=== PATIENT | male | born 1985 | race African-American/Black ===

== ENCOUNTER 2018-07-17 08:37 | Emergency (ER) | payer OTHER ==
[~2018-07-17] VITALS: Ht 190.5 cm; Wt 120.2 kg
[~2018-07-17 08:37] MED LIST: CYCL10TA45 PO; CYCL10TA9 PO; NAPR-689 PO; NAPR250T34 PO; TRM50T PO
--- OUTSIDE RECORDS SUMMARY | 2018-07-17 09:19 | XMS REPORT ---
Author Author ERNIE ISRAEL [facility] eClinicalWorks Address Unknown Phone Unavailable Care Team Providers Care It Administrator Name Role Phone ERNIE ISRAEL CP Unavailable Allergies, Adverse Reactions, Alerts Substance Reaction Event Type N.K.D.A. Info Not Available Non Drug Allergy Problems Problem Type Condition ICD-9 Code Onset Dates Condition Status Problem Routine adult health maintenance V70.0 Active Problem Lumbago 724.2 Active Problem Hypertension 401.9 Active Assessment Hypertension 401.9 Active Assessment Routine adult health maintenance V70.0 Active Problem Screening for hypertension V81.1 Active Problem Elevated blood pressure reading without diagnosis of hypertension 796.2 Active Medications Medication Code System Code Instructions Start Date End Date Status Dosage Lisinopril-Hydrochlorothiazide [facility] [address]-00 20-12.5 MG Orally Once a day Jul 19, 2015 1 tablet Gabapentin [facility] [address]-05 300 mg Aug 24, 2014 take 1 capsule ( 300 mg) by oral route 3 times per day Naprosyn [facility] [address]-33 500 mg Jul 21, 2014 1 tablet by Oral route 2 times per day for back pain Flexeril NDC 0 10 mg Jul 21, 2014 1 tablet by Oral route 3 times per day PRN muscle spasm Procedures Procedure Coding System Code Date Office Visit, Est Pt., Level 4 CPT-4 44724 Jul 19, 2015 Vital Signs Date/Time: Jul 19, 2015 Temperature 97.9 F Weight 267.0 lbs Height 75 in BMI 33.37 Index Blood Pressure Diastolic 90 mmHg Blood Pressure Systolic 138 mmHg Cardiac Monitoring Heart Rate 96 bpm Results No Known Results Summary Purpose eClinicalWorks Submission
--- OUTSIDE RECORDS SUMMARY | 2018-07-17 09:19 | XMS REPORT ---
Author JAMESON Theodore Organization eClinicalWorks Address Unknown Phone Unavailable Care Team Providers Care Power Saw Operator Name Role Phone JAMESON MANDEL CP Unavailable Allergies No Known Allergies Problems Problem Type Condition ICD-9 Code Onset Dates Condition Status Problem Screening for hypertension V81.1 Active Problem Elevated blood pressure reading without diagnosis of hypertension 796.2 Active Problem Lumbago 724.2 Active Medications Medication Code System Code Instructions Start Date End Date Status Dosage Hydrochlorothiazide [facility] [address]-04 12.5 MG Orally Once a day 1 capsule Lisinopril [facility] [address]-43 20 MG Orally Once a day 1 tablet Results No Known Results Summary Purpose eClinicalWorks Submission
--- OUTSIDE RECORDS SUMMARY | 2018-07-17 09:19 | XMS REPORT ---
Author JAMESON Theodore Organization eClinicalWorks Address Unknown Phone Unavailable Care Team Providers Care Plant Science Professor Name Role Phone JAMESON MANDEL CP Unavailable Allergies No Known Allergies Problems Problem Type Condition ICD-9 Code Onset Dates Condition Status Problem Screening for hypertension V81.1 Active Problem Elevated blood pressure reading without diagnosis of hypertension 796.2 Active Problem Lumbago 724.2 Active Medications No Known Medications Vital Signs Date/Time: Jul 06, 2015 Blood Pressure Diastolic 100 mmHg Blood Pressure Systolic 154 mmHg Results No Known Results Summary Purpose eClinicalWorks Submission
--- OUTSIDE RECORDS SUMMARY | 2018-07-17 09:20 | XMS REPORT ---
Author Author VIRGINIE BEAVERS Organization eClinicalWorks Address Unknown Phone Unavailable Care Team Providers Care Iron Handler Name Role Phone VIRGINIE BEAVERS CP Unavailable Allergies, Adverse Reactions, Alerts Substance Reaction Event Type N.K.D.A. Info Not Available Non Drug Allergy Problems Problem Type Condition Code Onset Dates Condition Status Problem Routine adult health maintenance V70.0 Active Problem Lumbago 724.2 Active Problem Hypertension 401.9 Active Assessment Sinusitis J32.9 Active Problem Screening for hypertension V81.1 Active Problem Elevated blood pressure reading without diagnosis of hypertension 796.2 Active Medications Medication Code System Code Instructions Start Date End Date Status Dosage Lisinopril-Hydrochlorothiazide [facility] [address]-25 20-12.5 MG Orally Once a day Jul 19, 2015 1 tablet Flexeril NDC 0 10 mg Jul 21, 2014 1 tablet by Oral route 3 times per day PRN muscle spasm Gabapentin [facility] [address]-15 300 mg Aug 24, 2014 take 1 capsule ( 300 mg) by oral route 3 times per day Meloxicam [facility] [address]-75 15 MG Orally Once a day 1 tablet Azithromycin [facility] [address]-63 250 MG Orally Once a day Oct 26, 2015 Nov 02, 2015 2 tablets on the first day, then 1 tablet daily for 6 days Procedures Procedure Coding System Code Date Office Visit, Est Pt., Level 3 CPT-4 39509 Oct 26, 2015 Vital Signs Date/Time: Oct 26, 2015 Temperature 98.5 F Weight 262.2 lbs Height 75 in BMI 32.77 Index Blood Pressure Diastolic 76 mmHg Blood Pressure Systolic 130 mmHg Cardiac Monitoring Heart Rate 92 bpm Results No Known Results Summary Purpose eClinicalWorks Submission
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
--- NOTE | 2018-07-17 09:38 | ED Back Pain ---
General Chief Complaint: Back Problems Stated Complaint: BACK PAIN Nursing Triage Note: Pt arrives to ED Room #5. Pt has extreme difficulty coming to standing position from sitting and changing position. Pt states that he has HX: Bulging disk, chronic back pain, and steroid injections. Pt states over the last week the pain has increased and he is unable to perform ADL's. Pt states that he has not been able to sit or lie comfortably and is not sleeping. Nursing Sepsis Screen: No Definite Risk Source of Information: Patient Exam Limitations: No Limitations (TERESITA HOFFMAN MED STUDENT) History of Present Illness Date Seen by Provider: Jul 17, 2018 Time Seen by Provider: 09:28 Initial Comments Patient is a 33 year old male who presents to the ED this morning with lower back pain. He states that he has had back pain for the past 5-6 years and receives steroid injections. His last injection by Dr. Robles was performed but patient states that it did not have any effect this time. He also sees a chiropractor, Dr. Egan. The pain has significantly increased this past week. He describes the pain as a sharp and stabbing pain that significantly affects his ADLs. He states the pain is constant and he cannot find a comfortable position. He has difficulty moving into the standing position and any changing of positions makes the pain worse. He has a shooting pain that goes down his left leg, and he states he also experiences some numbness in his left foot. He also complains to new onset midline lower back pain. He denies any difficulties with urination or defecation. He does state that he has not been able to eat much the last few days due to the pain. To help the pain he has been taking Meloxicam, baclofen, and hydrocodone with no relief of the pain. He has used flexeril in the past but did not like the drowiness associated with it, even though he states that it seemed to help more and is once again considering using it. Location: Lumbar Spine Timing/Duration: Constant, Getting Worse (Over the past week) Severity: Moderate Pain/Injury Location: Back Radiation: Buttocks, Feet Method of Injury: Unknown Modifying Factors: Improves With Immobilization; Worse With Movement Associated Symptoms: muscle spasms; No weakness; numbness in legs/feet (left), tingling in legs/feet (left); No sensory/motor loss; lower back pain; No loss of bladder control, No loss of bowel control (TERESITA HOFFMAN MED STUDENT) Allergies and Home Medications Allergies Coded Allergies: No Known Drug Allergies (Unverified , 08/27/13) Home Medications Cyclobenzaprine Hcl 10 Mg Tablet, 10 MG PO Q8H, (Reported) Cyclobenzaprine Hcl 10 Mg Tablet, 1 EACH PO BID Prescribed by: ROSA CASTAÑEDA on 07/15/14 1452 Naproxen 250 Mg Tablet, 1 EACH PO QID PRN, (Reported) Naproxen 500 Mg Tablet, 1 TAB PO BID Prescribed by: ROSA CASTAÑEDA on 07/15/14 1452 Oxycodone HCl/Acetaminophen 1 Each Tablet, 1 EACH PO Q4H PRN for PAIN-MODERATE TO SEVERE Prescribed by: EFE TAMAYO on 07/17/18 1036 Prednisone 10 Mg Tab, 0 PO UD Take 4 daily for 2 days, then 3 daily for 2 days, then 2 daily for 2 days, then 1 daily for 2 days Prescribed by: EFE TAMAYO on 07/17/18 1036 Patient Home Medication List Home Medication List Reviewed: Yes (EFE SILVA MD) Review of Systems Constitutional: No dizziness EENTM: no symptoms reported Respiratory: no symptoms reported Cardiovascular: no symptoms reported Gastrointestinal: No abdominal pain, No constipation, No diarrhea Genitourinary: No dysuria, No frequency, No hematuria, No incontinence Musculoskeletal: back pain (lower back), muscle pain (lower back), muscle stiffness (lower back), muscle cramps (lower back) Skin: no symptoms reported Psychiatric/Neurological: Numbness (left leg), Tingling (left leg), Weakness ( mild left leg) (TERESITA HOFFMAN STUDENT) Past Zvbisnf-Bbebpu-Wrjpde Hx Patient Social History Alcohol Use: Denies Use Recreational Drug Use: No 2nd Hand Smoke Exposure: No Recent Foreign Travel: No Contact w/Someone Who Travel: No Recent Infectious Disease Expo: No Recent Hopitalizations: No Physical Abuse: No Sexual Abuse: No Mistreated: No Fear: No (TERESITA HOFFMAN STUDENT) Immunizations Up To Date Tetanus Booster (TDap): More than 5yrs (TERESITA HOFFMAN STUDENT) Past Medical History Surgeries: No Respiratory: No Cardiac: Yes Hypertension Neurological: No Reproductive Disorders: No Genitourinary: No Gastrointestinal: No Musculoskeletal: Yes Chronic Back Pain Endocrine: No HEENT: No Cancer: No Psychosocial: No Integumentary: No Blood Disorders: No (TERESITA HOFFMAN MED STUDENT) Physical Exam Vital Signs (EFE SILVA MD) Vital Signs Capillary Refill : Less Than 3 Seconds (TERESITA HOFFMAN MED STUDENT) Height, Weight, BMI Height: 6'3.00" Weight: 265lbs. oz. 120.828777lm; 31.87 BMI Method:Stated General Appearance: Mild Distress HEENT: PERRL/EOMI, Pharynx Normal Neck: Non Tender Cardiovascular: Regular Rate, Rhythm, No Gallop, No JVD, No Murmur Respiratory: Lungs Clear, Normal Breath Sounds, No Accessory Muscle Use, No Respiratory Distress Gastrointestinal: Normal Bowel Sounds, Non Tender, Soft Back: Decreased Range of Motion (due to pain), Vertebral Tenderness (L3-5), Other (SI joint tenderness) Neurologic/Psychiatric: Alert, Oriented x3, No Motor/Sensory Deficits, Normal Mood/Affect Skin: Normal Color, Warm/Dry (TERESITA HOFFMAN MED STUDENT) Progress/Results/Core Measures Results/Orders My Orders Orders - EFE SILVA MD Ketorolac Injection (Toradol Injection) (07/17/18 10:30) Tramadol Tablet (Ultram Tablet) (07/17/18 10:30) Im/Sub-Q Injection Non-Ab Ed (07/17/18 ) (EFE SILVA MD) Medications Given in ED (EFE SILVA MD) Vital Signs/I&O (EFE SILVA MD) Blood Pressure Mean: 131 Progress Progress Note : Progress Note This patient was interviewed, seen, and examined by me personally along with JAMAR Pratt. I agree with her history, exam, documentation, assessment, and plan with the following additions. Patient has a long-standing history of lumbar radiculopathy. He is established with specialty care and receives steroid injections from Dr. Quezada. However, his most recent injection did not seem to help as much as they have in the past. He is here requesting help with relief from the pain. His usual hydrocodone is also not providing him significant relief. He has no change in bowel or bladder habits. He has persistent radiculopathy but no increased weakness from his prior episodes. Exam: Gen.: Alert, oriented, mild distress from pain HEENT: normocephalic and atraumatic Heart: regular rate and rhythm Lungs: Breath sounds clear bilaterally with normal effort Musculoskeletal: Tenderness over the lumbar spine and left SI joint region. Patient was given a Toradol injection and tramadol. Narcotics were avoided due to his need to drive home. Percocet was prescribed as a stronger pain medication for this acute exacerbation. A steroid taper was also prescribed. Advised that he talk with his orthopedist about possibly doing SI joint injections as he seems to have a significant amount of pain over the left SI joint. (EFE SILVA MD) Departure Impression Primary Impression: Lumbar radiculopathy Additional Impression: Pain of left sacroiliac joint Disposition: HOME, SELF-CARE Condition: Improved Departure-Patient Inst. Referrals: MANISH QUEZADA MD (PCP/Family) Primary Care Physician Patient Instructions: Radiculopathy (DC), Sacroiliac Joint Pain Add. Discharge Instructions: You may continue taking low back (meloxicam) as prescribed for pain. Add hydrocodone or Percocet for pain not controlled by meloxicam and gabapentin. You may continue using baclofen and gabapentin as prescribed. Consider increasing your gabapentin dose to [address] Quezada before doing so. Keep your follow-up appointment with Dr. Mullins. Discuss the possibility of targeted SI joint injections with Dr. Mullins. Return to care promptly if you have worsening symptoms, especially if you develop difficulty controlling bowels or bladder or worsening weakness of your leg. All discharge instructions reviewed with patient and/or family. Voiced understanding. Scripts Oxycodone HCl/Acetaminophen (Percocet 5-325 mg Tablet) 1 Each Tablet 1 EACH PO Q4H PRN for PAIN-MODERATE TO SEVERE MDD 6, #15 TAB Prov: EFE SILVA MD 07/17/18 Prednisone (Prednisone) 10 Mg Tab 0 PO UD, #20 TAB Take 4 daily for 2 days, then 3 daily for 2 days, then 2 daily for 2 days, then 1 daily for 2 days Prov: EFE SILVA MD 07/17/18 Work/School Note: Work Release Form Date Seen in the Emergency Department: Jul 17, 2018 Return to Work: Jul 18, 2018 Other Restrictions Listed Below: Increase level of activity as pain allows Copy Copies To 1: ODILIA MULLINS MD Copies To 2: MANISH QUEZADA MD, ANGELA M MED STUDENT Jul 17, 2018 09:38 EFE SILVA MD Jul 17, 2018 10:29
[2018-07-17] MEDS ORDERED: KETOROLAC 30 MG/ML VIAL IM ONE (10:30)
[2018-07-17] MEDS ORDERED: OXYC1TAB87 PO (10:36)
[2018-07-17] MEDS ORDERED: PRD10T PO (10:36)
[2018-07-17 11:11] VITALS: BP 180/128
== END 2018-07-17 11:11 | disposition home or self-care (01) ==
LOC: EDUNIT# 08:37 → ER 08:38
DX: M54.16 Radiculopathy, lumbar region (principal); M53.3 Sacrococcygeal disorders, not elsewhere classified; I10 Essential (primary) hypertension
CPT/HCPCS: 96372; 99284

== ENCOUNTER → 2018-08-01 | Outpatient (CLI) | payer OTHER ==
[~2018-08-01] MED LIST changes: +OXYC1TAB87 PO; +PRD10T PO
--- NOTE | 2018-08-01 14:00 | Diagnostic Imaging Report ---
PROCEDURE: MRI lumbar spine. TECHNIQUE: Multiplanar, multisequence MRI of the lumbar spine was performed without contrast. INDICATION: Chronic low back pain which radiates into the left lower extremity. COMPARISON: Comparison is made to study of 08/26/2013. FINDINGS: There is straightening of normal lumbar lordosis. Vertebral body heights are maintained. Conus medullaris is stable and unremarkable at the L1 level. T12-L1, L1-L2, L2-L3, and L3-L4 discs are also stable without evidence of focal herniation or significant stenosis. At the L4-5 level, there is an overall increase in right central and paramedian disc protrusion resulting in mild spinal and right lateral recess stenosis with mild bilateral neural foraminal stenosis. At L5-S1, there has been further worsening of large left paramedian disc extrusion resulting in high-grade spinal and left lateral recess stenosis. This is associated with disc bulging and endplate spurring resulting in moderate right and moderately severe left neural foraminal stenosis. No marrow signal abnormality is seen to indicate a fracture. IMPRESSION: Further worsening of L4-5 and L5-S1 degenerative changes with mild spinal and right lateral recess stenosis at L4-5. Extruded disc at L5-S1 results in moderate right and moderately severe left neural foraminal stenosis with high-grade spinal and left lateral recess stenosis. Dictated by: Dictated on workstation # [id number]
== END ==
LOC: RAD 13:06
PROVIDERS: ATTEND Physician Assistant
DX: M48.061 Spinal stenosis, lumbar region without neurogenic claudication (principal); M48.07 Spinal stenosis, lumbosacral region; M99.73 Connective tissue and disc stenosis of intervertebral foramina of lumbar region; M47.816 Spondylosis without myelopathy or radiculopathy, lumbar region; M47.817 Spondylosis without myelopathy or radiculopathy, lumbosacral region
CPT/HCPCS: 72148

== ENCOUNTER 2023-01-30 14:38 | Outpatient (RCR) | payer BC, OTHER | END 2023-02-01 | disposition home or self-care (01) | PROVIDERS: ATTEND Family Medicine | DX: S22.49XD Multiple fractures of ribs, unspecified side, subsequent encounter for fracture with routine healing (principal); M25.551 Pain in right hip; M25.552 Pain in left hip; V89.2XXD Person injured in unspecified motor-vehicle accident, traffic, subsequent encounter ==

== ENCOUNTER 2023-02-20 15:47 | Outpatient (RCR) | payer BC | END 2023-03-03 | disposition home or self-care (01) | PROVIDERS: ATTEND Family Medicine | DX: S22.49XD Multiple fractures of ribs, unspecified side, subsequent encounter for fracture with routine healing (principal); M25.551 Pain in right hip; M25.552 Pain in left hip; X58.XXXD Exposure to other specified factors, subsequent encounter ==

== ENCOUNTER → 2023-04-03 | Outpatient (RCR) | payer BC | END | disposition home or self-care (01) | PROVIDERS: ATTEND Family Medicine | DX: S22.49XD Multiple fractures of ribs, unspecified side, subsequent encounter for fracture with routine healing (principal); I10 Essential (primary) hypertension; E11.9 Type 2 diabetes mellitus without complications; V89.2XXD Person injured in unspecified motor-vehicle accident, traffic, subsequent encounter ==

== ENCOUNTER 2023-04-30 16:21 | Outpatient (RCR) | payer BC | END 2023-05-03 | disposition home or self-care (01) | PROVIDERS: ATTEND Family Medicine | DX: S22.49XD Multiple fractures of ribs, unspecified side, subsequent encounter for fracture with routine healing (principal); I10 Essential (primary) hypertension; E11.9 Type 2 diabetes mellitus without complications; M25.551 Pain in right hip; M25.552 Pain in left hip; X58.XXXD Exposure to other specified factors, subsequent encounter ==

== ENCOUNTER 2023-05-30 15:20 | Outpatient (RCR) | payer BC | END 2023-06-03 | disposition home or self-care (01) | PROVIDERS: ATTEND Family Medicine | DX: S22.49XD Multiple fractures of ribs, unspecified side, subsequent encounter for fracture with routine healing (principal); M25.551 Pain in right hip; M25.552 Pain in left hip; X58.XXXD Exposure to other specified factors, subsequent encounter ==

== ENCOUNTER 2023-06-28 13:01 | Outpatient (RCR) | payer BC | END 2023-07-04 | disposition home or self-care (01) | PROVIDERS: ATTEND Family Medicine | DX: S22.49XD Multiple fractures of ribs, unspecified side, subsequent encounter for fracture with routine healing (principal); M25.551 Pain in right hip; M25.552 Pain in left hip; X58.XXXD Exposure to other specified factors, subsequent encounter; I10 Essential (primary) hypertension; E11.9 Type 2 diabetes mellitus without complications ==

== ENCOUNTER 2023-08-09 15:00 | Outpatient (RCR) | payer BC | END 2023-09-03 | disposition home or self-care (01) | PROVIDERS: ATTEND Family Medicine | DX: S22.49XD Multiple fractures of ribs, unspecified side, subsequent encounter for fracture with routine healing (principal); M25.551 Pain in right hip; M25.552 Pain in left hip; X58.XXXD Exposure to other specified factors, subsequent encounter ==

== ENCOUNTER → 2023-08-12 | Outpatient (CLI) | payer BC ==
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
== END ==
LOC: RAD 08:41
PROVIDERS: ATTEND Family Medicine
DX: M47.816 Spondylosis without myelopathy or radiculopathy, lumbar region (principal); M47.817 Spondylosis without myelopathy or radiculopathy, lumbosacral region; M51.26 Other intervertebral disc displacement, lumbar region; M51.27 Other intervertebral disc displacement, lumbosacral region; M48.061 Spinal stenosis, lumbar region without neurogenic claudication; M48.07 Spinal stenosis, lumbosacral region
CPT/HCPCS: 72148

== ENCOUNTER → 2023-08-16 | Outpatient (CLI) | payer BC | LOC: RAD 14:38 | PROVIDERS: ATTEND Family Medicine | DX: Z53.9 Procedure and treatment not carried out, unspecified reason (principal) ==